=== PATIENT | female | born 1940 | race Caucasian/White ===

== ENCOUNTER 2019-01-26 23:14 | Inpatient (IN) | payer MEDICARE, BC ==
[~2019-01-26] VITALS: Ht 172.7 cm; Wt 59.4 kg
--- NOTE | 2019-01-26 23:40 | NUR ---
PATIENT WAS MSE BY DR DONALD.
[2019-01-26 23:55] LABS: BASOPHILS % (AUTO) 0.4 % (0.0-2.0); EOSINOPHILS % (AUTO) 0.9 % (0.0-7.0); HEMATOCRIT 38.4 % (31.2-41.9); HEMOGLOBIN 12.9 g/dL (10.9-14.3); LYMPHOCYTES # (AUTO) 1.3 K/uL (20.0-40.0); LYMPHOCYTES % (AUTO) 27.3 % (20.5-51.5); MEAN CORPUSCULAR HEMOGLOBIN 31.3 uug (24.7-32.8); MEAN CORPUSCULAR HGB CONC 34 g/dL (32.3-35.6); MEAN CORPUSCULAR VOLUME 92.9 fL (75.5-95.3); MONOCYTES # (AUTO) 0.6 K/uL (2.0-10.0); MONOCYTES % (AUTO) 12.5 % (0.0-11.0); NEUTROPHILS # (AUTO) 2.8 K/uL (1.8-8.9); NEUTROPHILS % (AUTO) 58.9 % (38.5-71.5); PLATELET COUNT (AUTO) 259 K/uL (179-408); RED BLOOD CELL COUNT(AUTO) 4.13 MIL/uL (3.63-4.92); WHITE BLOOD COUNT (AUTO) 4.7 K/uL (3.8-11.8)
[2019-01-27 00:01] LABS: CARBON DIOXIDE 28 mmol/L (21-32); CHLORIDE 102 mmol/L (98-107); CREATININE 0.7 mg/dL (0.6-1.3); GLUCOSE 108 mg/dL (74-106); POTASSIUM 4.5 mmol/L (3.5-5.1); UREA NITROGEN, BLOOD 26 mg/dL (7-18)
[2019-01-27 00:07] LABS: ALANINE AMINOTRANSFERASE 24 U/L (14-59); ALKALINE PHOSPHATASE 104 U/L (50-136); ASPARTATE AMINOTRANSFERASE 20 U/L (15-37); BILIRUBIN,DIRECT 0.1 mg/dL (0.0-0.2); BILIRUBIN,TOTAL 0.4 mg/dL (0.2-1.0); TOTAL PROTEIN, SERUM 7.7 g/dL (6.4-8.2)
[2019-01-27 00:15] LABS: THYROID STIMULATING HORMONE 5.565 mIU/mL (0.358-3.740)
[2019-01-27 00:23] LABS: ACETAMINOPHEN < 2.0 ug/mL (10-30)
[2019-01-27 00:27] LABS: ETHANOL < 3 MG/DL (0-0)
[2019-01-27 01:56] LABS: *BILIRUBIN,URIN NEGATIVE (NEGATIVE); *BLOOD, URINE NEGATIVE (NEGATIVE); *CLARITY,URINE CLEAR (CLEAR); *COLOR,URINE YELLOW (YELLOW); *KETONES,URINE TRACE (NEGATIVE); *UROBILINOGEN,URINE 0.2 E.U./dl (NORMAL); LEUKOCYTE ESTERASE ,URINE NEGATIVE (NEGATIVE); NITRITE, URINE NEGATIVE (NEGATIVE); UGLUCOSE NEGATIVE (NEGATIVE)
[2019-01-27 02:24] LABS: *AMPHETAMINE, URINE NEGATIVE (NEGATIVE); *BARBITURATE, URINE NEGATIVE (NEGATIVE); *CANNABINOID, URINE NEGATIVE (NEGATIVE); *COCCAINE, URINE NEGATIVE (NEGATIVE); *OPIATE, URINE NEGATIVE (NEGATIVE); *PHENCYCLIDINE SCREEN,URINE NEGATIVE (NEGATIVE)
[2019-01-27 02:27] LABS: BACTERIA,URINE NONE SEEN /HPF (NONE SEEN); SQUAMOUS EPITHELIAL CELL,UR NONE SEEN /HPF (NONE SEEN); WBC,URINE 0-3 /HPF (0-3)
--- NOTE | 2019-01-27 02:45 | NUR ---
PATIENT WAS MEDICALLY CLEARED BY DR DONALD.
--- NOTE | 2019-01-27 03:16 | NUR ---
Pt. admitted to MHU, under care of Belongs List completed
[2019-01-27] MEDS ORDERED: ACETAMINOPHEN 325 MG TABLET PO PRN (03:30)
[2019-01-27] MEDS ORDERED: LORAZEPAM 0.5 MG TABLET PO PRN (03:30)
[2019-01-27] MEDS ORDERED: TEMAZEPAM 7.5 MG CAPSULE PO PRN (03:30)
[2019-01-27] MEDS ORDERED: BLOOD SUGAR DIAGNOSTIC 1 EACH STRIP VI ONE (04:00)
[2019-01-27 04:30] VITALS: BP 151/79
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
[2019-01-27 07:30] VITALS: BP 109/54
--- NOTE | 2019-01-27 14:27 | NUR ---
GPS: received patient AOx3-4, asleep in her room, isolative , seen and examined by , orders made and carried out, patient went to nursing station, asking about he laboratory and checking if its normal, patient vebalize that she will go home today , patient paranoid and denies her delusion, will continue monitor
[2019-01-27 15:02] VITALS: BP 108/58
--- NOTE | 2019-01-27 16:39 | NUR ---
attempted to give her medication at 4pm, patient refuse at this time, claiming that she wants some food in first before having her medication , patient trying to evade her medication , verbalizing about her laboratory result which was explained to be not related with the medication, will try giving her medication after dinner , will continue monitor
[2019-01-27] MEDS: risperiDONE-M 0.5 MG TAB.RAPDIS PO SCH (17:01)
--- NOTE | 2019-01-27 17:03 | NUR ---
tried offering her risperdone at this time , patient took her meds , inspect her mouth patient swalloed her pills
--- NOTE | 2019-01-27 17:53 | NUR ---
patient remains calm, however paranoid with her surroundings, will continue monitor
[2019-01-27 19:57] VITALS: BP 117/73
[2019-01-27] MEDS ORDERED: OLANZAPINE 2.5 MG TABLET PO SCH (21:00)
[2019-01-28 07:18] LABS: BASOPHILS % (AUTO) 0.7 % (0.0-2.0); EOSINOPHILS # (AUTO) 0.1 K/uL (0.0-0.7); EOSINOPHILS % (AUTO) 2.2 % (0.0-7.0); HEMATOCRIT 36.5 % (31.2-41.9); HEMOGLOBIN 12.3 g/dL (10.9-14.3); LYMPHOCYTES # (AUTO) 1.1 K/uL (20.0-40.0); LYMPHOCYTES % (AUTO) 38.1 % (20.5-51.5); MEAN CORPUSCULAR HEMOGLOBIN 31.4 uug (24.7-32.8); MEAN CORPUSCULAR HGB CONC 34 g/dL (32.3-35.6); MEAN CORPUSCULAR VOLUME 93.4 fL (75.5-95.3); MONOCYTES # (AUTO) 0.4 K/uL (2.0-10.0); NEUTROPHILS # (AUTO) 1.3 K/uL (1.8-8.9); PLATELET COUNT (AUTO) 231 K/uL (179-408); RED BLOOD CELL COUNT(AUTO) 3.91 MIL/uL (3.63-4.92); WHITE BLOOD COUNT (AUTO) 2.9 K/uL (3.8-11.8)
[2019-01-28 07:30] VITALS: BP 121/61
[2019-01-28 07:32] LABS: BILIRUBIN,TOTAL 0.4 mg/dL (0.2-1.0); CREATININE 0.6 mg/dL (0.6-1.3); POTASSIUM 4.3 mmol/L (3.5-5.1); TOTAL PROTEIN, SERUM 6.4 g/dL (6.4-8.2)
[2019-01-28] MEDS: BENZTROPINE MESYLATE 0.5 MG TABLET PO SCH ×2 (08:27→17:12)
[2019-01-28] MEDS: risperiDONE-M 0.5 MG TAB.RAPDIS PO SCH ×2 (08:27→17:12)
--- NOTE | 2019-01-28 08:31 | NUR ---
PATIENT ARGUMENTATIVE WITH HER MEDICATION, TRIED POCKETING HER MEDICATION,
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
--- NOTE | 2019-01-28 09:33 | NUR ---
Social Work Note/Discharge Planning: clam bed worker contacted patients facility: [facility]; ([phone]) and left a voicemail to the health services coordinator. clam bed worker will follow-up to see if patient is welcomed back upon discharge.
--- NOTE | 2019-01-28 10:59 | NUR ---
GPS: PATIENT WENT BACK TO NURSING STATION, VERBALIZING THAT SHES HAVING HIGH BLOOD PRESSURE, RE CHECK WITH WITNESS BY LAUNDRY OPERATOR WASH ROOM, BLOOD PRESSURE WAS AT 115/60 AND PATIENT JUST WALK AWAY REALIZING THAT HER BP WAS WNL, WILL CONTINUE MONITOR
[2019-01-28 16:55] VITALS: BP 121/61
--- NOTE | 2019-01-28 18:06 | NUR ---
GPS: PATIENT BEEN COMPLIANT WITH MEDICATION, NEEDS PROMPTING WITH TAKING IT
[2019-01-28 20:46] VITALS: BP 115/69
[2019-01-28] MEDS: SIMVASTATIN 10 MG TABLET PO SCH (21:00)
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
--- NOTE | 2019-01-29 06:00 | NUR ---
slept well. continues to sleep. no distress noted.
[2019-01-29 07:30] VITALS: BP 102/70
[2019-01-29] MEDS: risperiDONE-M 0.5 MG TAB.RAPDIS PO SCH ×2 (08:51→20:52)
[2019-01-29] MEDS: BENZTROPINE MESYLATE 0.5 MG TABLET PO SCH ×2 (08:51→17:48)
--- NOTE | 2019-01-29 10:01 | NUR ---
Social Work Note/Discharge Planning Update: mud jack nozzle worker contacted patients facility: [facility]; spoke to [facility] media coordinator ([phone], ext: [phone]) (C: [phone]) who expressed patient is welcomed back but would want to evaluate patient upon discharge.
--- NOTE | 2019-01-29 15:53 | NUR ---
Social Work Note/Family Contact: warm in worker contacted patients sister Elliot Lawton, ([phone]) and left voicemail in regards to patients treatment plan and discharge plan. warm in worker was given this contact information from Sean, ([phone]) at [facility] where patient resides at.
[2019-01-29 16:00] VITALS: BP 112/61
[2019-01-29] MEDS: DIVALPROEX SPRINKLE 125 MG CAP.SPRINK PO SCH ×2 (16:20→20:52)
[2019-01-29 20:14] VITALS: BP 101/56
[2019-01-29] MEDS: SIMVASTATIN 10 MG TABLET PO SCH (20:58)
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
--- NOTE | 2019-01-30 06:00 | NUR ---
slept 5 hours total.
[2019-01-30 07:30] VITALS: BP 126/67
[2019-01-30] MEDS: BENZTROPINE MESYLATE 0.5 MG TABLET PO SCH ×2 (09:19→17:11)
[2019-01-30] MEDS: risperiDONE-M 0.5 MG TAB.RAPDIS PO SCH ×2 (09:19→20:28)
[2019-01-30] MEDS: DIVALPROEX SPRINKLE 125 MG CAP.SPRINK PO SCH ×2 (09:20→20:28)
--- NOTE | 2019-01-30 11:08 | NUR ---
Social Work Note/Discharge Planning Update: loft worker apprentice contacted [facility]; ([phone]) and spoke to Delicia who advised that an admin coordinator will contact back. loft worker apprentice received a phone call from admin coordinator Sasha ([phone]) who expressed that they want to transfer patient to there [facility] ([phone]). Sasha, admin coordinator will follow up with medical social consultant. Addendum: 01/30/19 at 1542 by JIMMIE JOYCE Disregard note.
--- NOTE | 2019-01-30 11:34 | NUR ---
Social Work Note/Individual Therapy Note: dairy cattle farm worker met with patient and provided brief supportive counseling. Patient was able to have a conversation with the brief writer.
--- NOTE | 2019-01-30 12:01 | NUR ---
Social Work Note/Family Contact: feeder worker power unit operator contacted patients sister Justin Lawton, ([phone]) and left a voicemail in regard to patients status. feeder worker power unit operator will follow up regularly.
[2019-01-30 16:00] VITALS: BP 108/49
[2019-01-30] MEDS: SIMVASTATIN 10 MG TABLET PO SCH (20:33)
--- NOTE | 2019-01-30 22:00 | NUR ---
received to care, sitting in her room. observed to be in the hallway several times, interacting with peers and staff. remains pleasant upon approach, but suspicious, at times. was compliant with her bedtime medications, except for zocor. continues to be focused on zander ozzie, but would not elaborate further; reality orientation was provided. as of 2199, she appears to be asleep. no distress noted. will continue to monitor closely.
[2019-01-30 22:11] VITALS: BP 107/63
--- NOTE | 2019-01-31 06:00 | NUR ---
slept 7.5 hours. continues to sleep. no distress noted.
[2019-01-31 07:30] VITALS: BP 117/64
[2019-01-31] MEDS: DIVALPROEX SPRINKLE 125 MG CAP.SPRINK PO SCH ×2 (08:55→20:39)
[2019-01-31] MEDS: risperiDONE-M 0.5 MG TAB.RAPDIS PO SCH ×2 (08:55→20:40)
[2019-01-31] MEDS: BENZTROPINE MESYLATE 0.5 MG TABLET PO SCH ×2 (08:55→17:09)
[2019-01-31 16:00] VITALS: BP 97/48
[2019-01-31] MEDS: SIMVASTATIN 10 MG TABLET PO SCH (20:39)
[2019-01-31 21:06] VITALS: BP 111/65
[2019-02-01 07:30] VITALS: BP 118/61
[2019-02-01] MEDS: risperiDONE-M 0.5 MG TAB.RAPDIS PO SCH ×2 (09:03→20:48)
[2019-02-01] MEDS: BENZTROPINE MESYLATE 0.5 MG TABLET PO SCH ×2 (09:03→16:19)
[2019-02-01] MEDS: DIVALPROEX SPRINKLE 125 MG CAP.SPRINK PO SCH ×2 (09:03→20:43)
--- NOTE | 2019-02-01 10:00 | NUR ---
DR SHARMA HERE TO SEE AND VISIT PATIENT WITH NO NEW ORDERS AT THIS TIME
[2019-02-01 16:10] VITALS: BP 97/46
--- NOTE | 2019-02-01 18:10 | NUR ---
HAS BEEN COMPLIANT WITH HER MEDICATIONS EVEN THOUGH SHE SAID THAT THE MEDICATIONS SHE WAS GETTING WAS NOT THE RIGHT ONES.
[2019-02-01] MEDS: SIMVASTATIN 10 MG TABLET PO SCH (20:48)
--- NOTE | 2019-02-01 20:48 | NUR ---
gps: refused zocor 10 mg po hs dose.
--- NOTE | 2019-02-02 06:02 | NUR ---
GPS: Remain calm and cooperative. slept 5:45 hrs through the night. continue plan of care.
[2019-02-02 07:30] VITALS: BP 126/69
[2019-02-02] MEDS: BENZTROPINE MESYLATE 0.5 MG TABLET PO SCH ×2 (08:50→16:36)
[2019-02-02] MEDS: risperiDONE-M 0.5 MG TAB.RAPDIS PO SCH (08:50)
[2019-02-02] MEDS: DIVALPROEX SPRINKLE 125 MG CAP.SPRINK PO SCH ×3 (08:50→20:56)
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
[2019-02-02 15:53] VITALS: BP 106/61
[2019-02-02 20:00] VITALS: BP 111/68
[2019-02-02] MEDS: MAGNESIUM HYDROXIDE 30 ML LIQUID UDC PO PRN (20:56)
[2019-02-02] MEDS: SIMVASTATIN 10 MG TABLET PO SCH (20:57)
[2019-02-02] MEDS ORDERED: risperiDONE-M 0.5 MG TAB.RAPDIS PO SCH (21:00)
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
--- NOTE | 2019-02-03 06:00 | NUR ---
slept 8.0 hours. continues to sleep. no distress noted.
[2019-02-03 07:30] VITALS: BP 130/64
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
[2019-02-03] MEDS: BENZTROPINE MESYLATE 0.5 MG TABLET PO SCH ×2 (09:18→16:16)
[2019-02-03] MEDS: DIVALPROEX SPRINKLE 125 MG CAP.SPRINK PO SCH ×3 (09:18→20:14)
[2019-02-03] MEDS: risperiDONE-M 0.5 MG TAB.RAPDIS PO SCH ×2 (09:19→20:07)
--- NOTE | 2019-02-03 10:29 | NUR ---
Social Work Note/Discharge Plan Update: factory worker faxed patients progress notes and psychiatric H & P to Lexus from [facility] (F:[phone]) for coordination of care. Admin coordinator expressed that patient is welcomed upon discharge.
[2019-02-03 15:27] VITALS: BP 117/59
[2019-02-03 20:00] VITALS: BP 111/69
[2019-02-03] MEDS: MAGNESIUM HYDROXIDE 30 ML LIQUID UDC PO PRN (20:06)
[2019-02-03] MEDS: SIMVASTATIN 10 MG TABLET PO SCH (20:14)
--- NOTE | 2019-02-03 21:09 | NUR ---
Patient refused to take Depakote this PM. clarification needed if MD wants to continue Depakote. Call placed to and left message. Awaiting call back. No acute distress noted with patient.
--- NOTE | 2019-02-04 06:10 | NUR ---
Patient slept 6.5 hours. Up during the night worrying about her laundry. Back to bed and asleep at this time.
[2019-02-04 07:30] VITALS: BP 105/52
[2019-02-04] MEDS: risperiDONE-M 0.5 MG TAB.RAPDIS PO SCH ×2 (09:04→20:06)
[2019-02-04] MEDS: BENZTROPINE MESYLATE 0.5 MG TABLET PO SCH (09:05)
[2019-02-04] MEDS: DIVALPROEX SPRINKLE 125 MG CAP.SPRINK PO SCH (09:05)
[2019-02-04] MEDS ORDERED: BENZTROPINE MESYLATE 0.5 MG TABLET PO SCH (10:45)
[2019-02-04] MEDS: BENZTROPINE MESYLATE 1 MG TABLET PO SCH ×2 (12:14→18:29)
--- NOTE | 2019-02-04 13:59 | NUR ---
Social Work Note/Coordination of Care: Sean wellness program manager ([phone]) from [facility] came to assess patient. Sean stated that they need to assess patients level of care upon discharge before they take patient back.
[2019-02-04 16:00] VITALS: BP 115/57
[2019-02-04] MEDS: MAGNESIUM HYDROXIDE 30 ML LIQUID UDC PO PRN (20:06)
[2019-02-04] MEDS: SIMVASTATIN 10 MG TABLET PO SCH (20:06)
[2019-02-04 23:22] VITALS: BP 139/66
[2019-02-05 07:30] VITALS: BP 118/64
[2019-02-05] MEDS: BENZTROPINE MESYLATE 1 MG TABLET PO SCH ×2 (08:32→16:29)
[2019-02-05] MEDS: risperiDONE-M 0.5 MG TAB.RAPDIS PO SCH ×2 (08:33→21:01)
[2019-02-05 16:00] VITALS: BP 115/64
--- NOTE | 2019-02-05 16:58 | NUR ---
Gps/Medical File Clerk- Patient is forgetful, insisting she already took her routine afternoon meds. informed patient she has not taken any pm meds. yet .Attends and participates in her group,
--- NOTE | 2019-02-05 20:00 | NUR ---
Patient received into care, awake and alert, sitting on side of bed. Patient has no complaints of pain or discomfort at this time, but is asking for something to help with heartburn. All safety and fall precaution measures are in place. Will continue to monitor.
[2019-02-05] MEDS: SIMVASTATIN 10 MG TABLET PO SCH (21:00)
[2019-02-05] MEDS: MAG HYDROX/AL HYDROX/SIMETH 30 ML LIQUID UDC PO PRN (21:00)
--- NOTE | 2019-02-05 21:00 | NUR ---
Patient refused prescribed zocor, stating that her cholesterol is fine and that on the last visit to her physician she agreed to change her diet/eating habits and physician will recheck cholesterol in 4 months.
--- NOTE | 2019-02-06 06:30 | NUR ---
Patient slept comfortably for 7 hours after move to GPS overflow on third floor. Patient had no complaints of pain or discomfort this shift. All safety and fall precaution measures remain in place.
[2019-02-06] MEDS: BENZTROPINE MESYLATE 1 MG TABLET PO SCH ×2 (08:55→16:51)
[2019-02-06] MEDS: risperiDONE-M 0.5 MG TAB.RAPDIS PO SCH ×2 (08:56→20:28)
[2019-02-06 11:44] VITALS: BP 105/63
--- NOTE | 2019-02-06 12:23 | NUR ---
Social Work Note/Discharge Plan Update: coating line worker contacted Sean from [facility] ([phone]) and she stated that she will assess patient Friday 02/09 and upon discharge patient is welcomed back.
[2019-02-06 16:07] VITALS: BP 121/78
--- NOTE | 2019-02-06 17:41 | NUR ---
Patient resting in bed, no distress noted or complaints of pain. Sitter remains at bedside for safety. Patient calm, compliant with nursing care.
[2019-02-06 20:00] VITALS: BP 121/57
[2019-02-06] MEDS: SIMVASTATIN 10 MG TABLET PO SCH (20:28)
[2019-02-06] MEDS: MAGNESIUM HYDROXIDE 30 ML LIQUID UDC PO PRN (20:29)
--- NOTE | 2019-02-07 06:52 | NUR ---
Patient slept 8 hours throughout the night with 1:1 sitter at bedside. Patient had no complaints of pain or discomfort verbalized. Patient was noncompliant with her prescribed 2100 respiradone. .
[2019-02-07 08:47] VITALS: BP 122/72
[2019-02-07] MEDS: BENZTROPINE MESYLATE 1 MG TABLET PO SCH ×2 (09:36→17:58)
[2019-02-07] MEDS: risperiDONE-M 0.5 MG TAB.RAPDIS PO SCH ×2 (09:37→20:13)
[2019-02-07 16:33] VITALS: BP 114/65
[2019-02-07] MEDS: MAG HYDROX/AL HYDROX/SIMETH 30 ML LIQUID UDC PO PRN (18:07)
[2019-02-07 20:00] VITALS: BP 115/57
--- NOTE | 2019-02-07 20:00 | NUR ---
Patient received into care, sitting on side of bed, with 1:1 sitter at bedside. Patient is alert/oriented x3 and has no complaints of pain or discomfort at this time. All safety and fall precaution measures are in place. Personal items are within reach at all times. Will continue to monitor and assess.
[2019-02-07] MEDS: SIMVASTATIN 10 MG TABLET PO SCH (20:23)
--- NOTE | 2019-02-07 20:27 | NUR ---
Patient refused zocor, stating that she has already brought down her cholesterol by 40 points and therefore does not need the medication. Patient also stated that she wants nurse to put in her records to not offer medication to her. Nurse explained risks/benefits three times, patient still refused.
--- NOTE | 2019-02-08 06:00 | NUR ---
Patient slept 8 hours throughout night with 1:1 sitter at side. Patient was compliant with prescribed psychotropic medications but refused prescribed hyperlipidemia medications. All safety, fall precaution, and aspiration precaution measures remain in place. Call light and personal items remain within reach at all times.
[2019-02-08 08:00] VITALS: BP 110/73
[2019-02-08] MEDS: BENZTROPINE MESYLATE 1 MG TABLET PO SCH ×2 (10:20→17:00)
[2019-02-08] MEDS: risperiDONE-M 0.5 MG TAB.RAPDIS PO SCH ×2 (10:21→20:00)
[2019-02-08] MEDS: MAG HYDROX/AL HYDROX/SIMETH 30 ML LIQUID UDC PO PRN (13:57)
[2019-02-08 16:04] VITALS: BP 106/55
[2019-02-08] MEDS: MAGNESIUM HYDROXIDE 30 ML LIQUID UDC PO PRN (16:20)
[2019-02-08] MEDS: SIMVASTATIN 10 MG TABLET PO SCH ×2 (20:00→20:12)
[2019-02-08 20:53] VITALS: BP 106/67
--- NOTE | 2019-02-09 06:54 | NUR ---
PATIENT SLEPT 6 HOURS LAST NIGHT.PATIENT CONTINUES WITH DELUSIONS BUT WAS COMPLIANT WITH NIGHT TIME MEDICATIONS. NO SUICIDAL IDEATION VERBALIZED BY PATIENT. 1:1 SITTER AT BEDSIDE.NO ACUTE CHANGES ENDORSED TO AM NURSE.
[2019-02-09 09:04] VITALS: BP 106/50
[2019-02-09] MEDS: BENZTROPINE MESYLATE 1 MG TABLET PO SCH ×2 (09:52→17:22)
[2019-02-09] MEDS: risperiDONE-M 0.5 MG TAB.RAPDIS PO SCH (09:52)
[2019-02-09 15:24] VITALS: BP 99/59
--- NOTE | 2019-02-09 18:18 | NUR ---
Pt, compliant with plan of care. pt. denies pain/ discomfort. Pt. denies SOB/ difficulty breathing. Pt. took all medications, cooperative, and calm throughout day. Pt. walked around unit and expressed feelings with sitter. Safety measures in place. call light within reach. Will continue to monitor pt.
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
[2019-02-09] MEDS: SIMVASTATIN 10 MG TABLET PO SCH (20:43)
[2019-02-09] MEDS ORDERED: risperiDONE-M 0.5 MG TAB.RAPDIS PO SCH (21:00)
--- NOTE | 2019-02-10 07:30 | NUR ---
Patient with one to one sitter with no signs of distress; patient resting in bed.
--- NOTE | 2019-02-10 08:36 | NUR ---
Social Work Note/Discharge: Patient will be discharged back to [facility] [address] [facility], [place] [address]; ([phone] via taxi. Patient to be picked up at 11:00pm via taxi. Crimping Press Operator spoke with [facility] extrusion die coordinator ([phone], ext: [phone]) (C: [phone]) at the facility who states they are ready to accept the patient back today. Patient is aware and agreeable with discharge plans. Patients sister Elliot Lawton, ([phone]) is aware and agreeable with discharge plans. Patient is alert and oriented x3, is not able to plan for self-care, and denies any suicidal or homicidal ideations. Patient will follow-up at the facility [address] [place] [address]; ([phone]) with Dr. Barcenas with (Primary Care Physician) on February 16, 2019 at 1PM. Patient will follow up with psychiatrist Dr. Sanon at the facility. Patient was given outpatient mental health referrals to [facility] [[address] [place] [address]; [phone]]; [facility] ([phone]); National Suicide Prevention Lifeline ( ). Patient presents with euthymic mood and congruent affect.
--- NOTE | 2019-02-10 08:37 | NUR ---
Social Work Note/Firearms Report: Marine Drafter completed and submitted a [employer] firearms report for 5250 grave disability certification. A copy of report has been placed in patient chart.
--- NOTE | 2019-02-10 08:38 | NUR ---
Social Work Note/Family Contact: eligibility worker contacted patients sister Justin Lawton, ([phone]) and left a voicemail in regard to patients discharge.
[2019-02-10] MEDS: BENZTROPINE MESYLATE 1 MG TABLET PO SCH (09:34)
[2019-02-10] MEDS: risperiDONE-M 0.5 MG TAB.RAPDIS PO SCH (09:34)
--- NOTE | 2019-02-10 10:20 | NUR ---
called [facility] pharmacy for discharge prescription per Dr. Sanon ordered. spoke with Paresh
--- NOTE | 2019-02-10 12:35 | NUR ---
Patient discharged home with oil trough taxi provided by [facility]; Patient discharged back to [facility] in stable condition with no signs of distress; and stable vital signs patient educated on discharge instructions. Patient refused pictures of toe taken upon initial assessment; Patient verbalized understanding of discharge instructions.
== END 2019-02-10 12:35 | DRG 885 ==
LOC: ER 23:16 → GPS 01-27 03:12 → MEDSURG3 02-05 22:37 → GPSOV3 02-05 23:23
PROVIDERS: ADMIT Psychiatry & Neurology Psychosomatic Medicine; ATTEND Internal Medicine
DX: F25.0 Schizoaffective disorder, bipolar type (principal); D68.59 Other primary thrombophilia; G31.84 Mild cognitive impairment of uncertain or unknown etiology; Z74.09 Other reduced mobility; M20.42 Other hammer toe(s) (acquired), left foot; M20.41 Other hammer toe(s) (acquired), right foot; M20.12 Hallux valgus (acquired), left foot; M20.11 Hallux valgus (acquired), right foot; L84 Corns and callosities; E78.5 Hyperlipidemia, unspecified; E03.9 Hypothyroidism, unspecified; L98.8 Other specified disorders of the skin and subcutaneous tissue
CPT/HCPCS: 36415; 80164; 80307; 84443; 85025; A4663; G0480; G0480-TC

== ENCOUNTER 2020-10-05 17:27 | Inpatient (IN) | payer BC, MEDICARE, OTHER ==
[~2020-10-05] VITALS: Ht 165.1 cm; Wt 59.0 kg
--- NOTE | 2020-10-05 17:27 | NUR ---
Patient is here in our ER department for medical clearance. The patient is for geriatric mental health unit admission@this time and she is on 5150 psych HOLD since 12 noon of 10/04/20 for gravely disabled.
--- NOTE | 2020-10-05 17:33 | NUR ---
Patient refused EKG until seen by our ER doctor. Comfort & safety measures maintained.
--- NOTE | 2020-10-05 17:49 | NUR ---
Patient is eating dinner with good appetite, calm & cooperative@this time
--- NOTE | 2020-10-05 18:28 | NUR ---
Patient is waiting for our ER doctor to examine and clear this patient for psych admission.
--- NOTE | 2020-10-05 18:56 | NUR ---
Hands off report to LALO Merino, still for medical clearance
--- NOTE | 2020-10-05 19:52 | NUR ---
pt transfered to mhu in stable condition.
[2020-10-05 20:30] VITALS: BP 129/68
[2020-10-05] MEDS ORDERED: MAG HYDROX/AL HYDROX/SIMETH 30 ML LIQUID UDC PO PRN (22:15)
[2020-10-05] MEDS ORDERED: ACETAMINOPHEN 325 MG TABLET PO PRN (22:15)
[2020-10-05] MEDS ORDERED: LORAZEPAM 1 MG TABLET PO PRN (22:15)
[2020-10-05] MEDS ORDERED: TEMAZEPAM 7.5 MG CAPSULE PO PRN (22:15)
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
[2020-10-06 07:16] LABS: BILIRUBIN,TOTAL 0.5 mg/dL (0.2-1.0); CREATININE 0.7 mg/dL (0.6-1.3); POTASSIUM 4.2 mmol/L (3.5-5.1); TOTAL PROTEIN, SERUM 6.4 g/dL (6.4-8.2)
[2020-10-06 07:30] VITALS: BP 110/56
--- NOTE | 2020-10-06 08:04 | NUR ---
FIREARMS REPORT: Cell Pourer completed and submitted a [employer] firearms report for 5150 grave disability certification. A copy of report has been placed in patient chart.
--- NOTE | 2020-10-06 09:28 | NUR ---
SW Family Contact: This SW contacted patient's sister Elliot Lawton ([phone]) and left a detailed voicemail of patients treatment/discharge plan.
--- NOTE | 2020-10-06 09:28 | NUR ---
JIMMIE Initial Discharge: Patient lives alone at [id number] [place] [address]; ([phone]). Patient will return home upon discharge. This SW contacted patient's sister Elliot Lawton ([phone]) and left a detailed voicemail of patients treatment/discharge plan. JIMMIE will work with the pt and doctor to coordinate proper discharge.
--- NOTE | 2020-10-06 09:29 | NUR ---
Treatment Plan: Pt refused to sign due to paranoia.
--- NOTE | 2020-10-06 12:25 | NUR ---
UR NOTE: Auth# [id number] obtained from [employer] with [employer] at [phone] Approved for 3 days continued stay is based on medical necessity & clinical review. Geothermal Operations Manager. assigned is; Art A. and his direct line is [phone] FAX# [phone]
--- NOTE | 2020-10-06 14:40 | NUR ---
SW Note: Patient on the phone constantly calling different places and making accusatory statements that the hospital is neglecting her care and that nurses are "doing certain things to her". This SW notified patient's assigned nurse RICO Reddy.
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
--- NOTE | 2020-10-06 14:50 | NUR ---
SW Note: This SW notified Dr. Fuller of pt's behavior. This SW stated pt is accusatory of staff.
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
[2020-10-06 16:05] VITALS: BP 125/63
--- NOTE | 2020-10-06 16:50 | NUR ---
Gps/Pantry Steward/Stewardess- Dr Fuller was called was informed of the patient , assisnged to Dr Engel, he claimed he spoked to Dr Engel already this pm.
--- NOTE | 2020-10-06 17:00 | NUR ---
Gps/Clothing Pattern Preparer- Dr Engel was called and was informed he is the admitting Doctor for the patient, stated he already talked to Dr Fuller , and he is comming to see all the patients today. Dr Engel will be coving tomorrow.
--- NOTE | 2020-10-06 18:39 | NUR ---
Gps/Lav- Ate 100% of dinner was asking for more jennifer. puddings. Patient came back claimed she is having a heart attack, was told to go back to her room and stay in bed. B/P check 151/70 on her right arm, HR 76 reg , radial pulse, Temp. 97.1, 99% with 02 sat. patient claimed she had many heart attacks, including last night that they use defibrillator on her , then she was ok. Patient got up walks around. with no discomfort noted, asking when Dr Fuller see her, needed to leave per pt. she has appointment to take care of.
[2020-10-06 20:00] VITALS: BP 141/69
[2020-10-06] MEDS: risperiDONE 1 MG TABLET PO SCH (20:40)
[2020-10-07 07:30] VITALS: BP 113/61
[2020-10-07] MEDS: risperiDONE 1 MG TABLET PO SCH ×2 (08:39→20:06)
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
--- NOTE | 2020-10-07 09:14 | NUR ---
Gps/Packing Machine Tender- Per Patient she does not take any medications at home(No home meds.)
--- NOTE | 2020-10-07 09:29 | NUR ---
UR NOTE: Initial Auth# [id number] New Auth#[id number] JIMMIE spoke with Plasterer StuccoMgr. Myron Llamas ([phone] FAX# [phone]) and faxed patient's clinicals. Art stated he will fax SW confirmation of authorization and will require clinicals on Saturday. Addendum: 10/07/20 at 0940 by ISAÍAS LAL Art faxed SW auth confirmation and the copy has been placed in the patient's chart.
[2020-10-07] MEDS: MAGNESIUM HYDROXIDE 30 ML LIQUID UDC PO PRN (12:59)
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
[2020-10-07 16:00] VITALS: BP 115/67
[2020-10-07 20:02] VITALS: BP 95/66
[2020-10-08 07:30] VITALS: BP 107/63
[2020-10-08] MEDS: risperiDONE 1 MG TABLET PO SCH ×2 (08:02→21:11)
[2020-10-08 16:22] VITALS: BP 118/56
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
[2020-10-08 20:15] VITALS: BP 98/50
--- NOTE | 2020-10-08 22:00 | NUR ---
patient noted suspicious. she stated, "There is a camera in my room". she required multiple redirection and constant reassurance. she is able to comply with medication regiment at this time. will continue to monitor
[2020-10-09] MEDS: risperiDONE 1 MG TABLET PO SCH ×2 (08:35→21:07)
[2020-10-09] MEDS: MAGNESIUM HYDROXIDE 30 ML LIQUID UDC PO PRN (09:07)
[2020-10-09 09:13] VITALS: BP 109/69
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
[2020-10-09 16:11] VITALS: BP 119/48
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
[2020-10-09 20:17] VITALS: BP 116/72
[2020-10-10 08:00] VITALS: BP 112/62
--- NOTE | 2020-10-10 08:12 | NUR ---
UR NOTE: Initial Auth# [id number] New Auth#[id number] JIMMIE spoke with Youth Officer. Art A. ([phone] FAX# [phone]) and faxed patient's clinicals.
[2020-10-10] MEDS: risperiDONE 1 MG TABLET PO SCH (08:37)
--- NOTE | 2020-10-10 10:12 | NUR ---
Court Hearing: Patient's court hearing for 2480 was today and it was upheld for GD.
[2020-10-10] MEDS: MAGNESIUM HYDROXIDE 30 ML LIQUID UDC PO PRN (11:20)
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
--- NOTE | 2020-10-10 14:39 | NUR ---
UR NOTE: Initial Auth# [id number] New Auth#[id number] JIMMIE spoke with Matte Cutter. Art A. ([phone] FAX# [phone]) who stated that pt is authorized until stable but will require daily clinicals. This SW requested confirmation and per Art caser up he stated that they will not be sending confirmation and that he will not start to do so. He stated that he is giving verbal consent that pt is authorized.
[2020-10-10] MEDS: ENSURE ENLIVE (VAN) 240 ML LIQUID PO SCH (16:52)
[2020-10-10 19:56] VITALS: BP 111/60
[2020-10-10] MEDS: risperiDONE 2 MG TABLET PO SCH (20:21)
[2020-10-10] MEDS ORDERED: risperiDONE 1 MG TABLET PO SCH (21:00)
[2020-10-11 07:30] VITALS: BP 132/75
[2020-10-11] MEDS: risperiDONE 2 MG TABLET PO SCH ×2 (08:37→20:07)
[2020-10-11] MEDS: ENSURE ENLIVE (VAN) 240 ML LIQUID PO SCH ×2 (08:38→16:51)
--- NOTE | 2020-10-11 14:20 | NUR ---
UR NOTE: Initial Auth# [id number] New Auth#[id number] JIMMIE faxed Geophysical E Logger. Art A. ([phone] FAX# [phone]) updated clinicals and left a voicemail for him to contact this SW back and confirm if received. Waiting for a call back.
[2020-10-11 15:01] VITALS: BP 103/53
[2020-10-11 20:30] VITALS: BP 118/73
--- NOTE | 2020-10-12 06:51 | NUR ---
GPS: Remain paranoid and needy. cooperative with meds and care. slept 7.30 hrs through the night. resting in bed comfortably. continue plan of care.
[2020-10-12 07:30] VITALS: BP 126/77
[2020-10-12] MEDS: risperiDONE 2 MG TABLET PO SCH ×2 (08:02→20:06)
[2020-10-12] MEDS: FLUVOXAMINE MALEATE 25 MG TABLET PO SCH ×3 (08:09→17:00)
[2020-10-12] MEDS: ENSURE ENLIVE (VAN) 240 ML LIQUID PO SCH ×2 (08:44→17:46)
--- NOTE | 2020-10-12 08:57 | NUR ---
UR NOTE: Initial Auth# [id number] New Auth#[id number] JIMMIE faxed Lining Strap Closer. Art A. ([phone] FAX# [phone]) updated clinicals and left a voicemail for him to contact this SW back and confirm if received. Waiting for a call back.
--- NOTE | 2020-10-12 09:51 | NUR ---
JIMMIE Coordination of Care: Patient was provided (primary doctor) Dr. Carrasco information located at [address] [facility], [place] [address] ([phone]). Patient will be referred to [facility] for intake evaluation located at [address] [facility] [address], [place] [address]; ([phone]) via telehealth on October 18 at 8:30AM scheduled by Paulette.
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
[2020-10-12 13:00] VITALS: BP 114/66
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
[2020-10-12 19:59] VITALS: BP 112/61
[2020-10-13 07:30] VITALS: BP 121/61
[2020-10-13] MEDS: ENSURE ENLIVE (VAN) 240 ML LIQUID PO SCH ×2 (09:00→17:53)
[2020-10-13] MEDS: FLUVOXAMINE MALEATE 25 MG TABLET PO SCH ×3 (09:00→17:00)
[2020-10-13] MEDS: risperiDONE 2 MG TABLET PO SCH ×2 (09:30→20:12)
--- NOTE | 2020-10-13 12:45 | NUR ---
GPS: Pt at the room alert and verbally responsive. pt refused luvox at 900 and 1300, with paranoid delusion, per pt she was mis-diagnosed and her diagnosis for admission here was heart attack.
--- NOTE | 2020-10-13 15:56 | NUR ---
UR NOTE: Initial Auth# [id number] New Auth#[id number] JIMMIE faxed Newspaper Vendor. Art A. ([phone] FAX# [phone]) updated clinicals and left a voicemail for him to contact this SW back and confirm if received. Waiting for a call back.
[2020-10-13 16:04] VITALS: BP 97/52
--- NOTE | 2020-10-13 18:07 | NUR ---
GPS: pt alert, likes to ambulate in hallway with walker. pt refused luvox this 1700. per pt, she's only giving the nurse a favor for taking the risperdal. but luvox, she does not like to take it.
[2020-10-13 20:00] VITALS: BP 101/57
[2020-10-13] MEDS: MAGNESIUM HYDROXIDE 30 ML LIQUID UDC PO PRN (20:25)
--- NOTE | 2020-10-13 21:02 | NUR ---
AAOx3-4 all needs attended. VSS. Tolerated po meds well. Ambulatory ad jesus. No behavioral issues noted. No signs of agitation or restlessness. Calm and cooperative. Compliant with care. Asked for milk of magnesia. No BM noted this shift. Will monitor patient. Continent of bowel and bladder.
--- NOTE | 2020-10-14 06:27 | NUR ---
End of shift report: Slept well throughout the night. Had 8hrs of sleep. No acute distress noted. Denies any pain nor any discomfort.
[2020-10-14 07:30] VITALS: BP 110/54
--- NOTE | 2020-10-14 08:35 | NUR ---
UR NOTE: Initial Auth# [id number] New Auth#[id number] JIMMIE faxed Kitchen Assistant. Art A. ([phone] FAX# [phone]) updated clinicals and left a voicemail for him to contact this SW back and confirm if received. Waiting for a call back.
[2020-10-14] MEDS: FLUVOXAMINE MALEATE 25 MG TABLET PO SCH ×3 (09:00→17:00)
--- NOTE | 2020-10-14 09:06 | NUR ---
JIMMIE Family Contact: This SW left patients sister Jered ([phone]) a voicemail and she was unavailable. SW stated pt will be returning back home on 10/15 in the voicemail.
--- NOTE | 2020-10-14 09:07 | NUR ---
EARLY DISCHARGE ENTRY 10/15/2020Saturday: Patient will be discharged back home [address] [place]; ([phone]). Patient will be provided taxi transportation at 1PM. This SW left patients sister Jered ([phone]) a voicemail and she was unavailable. Upon discharge, patient appeared to be alert and oriented x3 and happy to be going back home. Patient denies suicidal or homicidal ideation. Patient denies visual/auditory hallucinations. Patient was provided (primary doctor) Dr. Carrasco information located at [address] [facility] [facility], [place] [address] ([phone]). Patient will be referred to [facility] for intake evaluation located at [address] [facility] [address], [place] [address]; ([phone]) via telehealth on October 18 at 8:30AM. Patient presented with euthymic mood and congruent affect.
[2020-10-14] MEDS: risperiDONE 2 MG TABLET PO SCH ×2 (09:19→20:23)
[2020-10-14] MEDS: ENSURE ENLIVE (VAN) 240 ML LIQUID PO SCH ×2 (09:23→17:40)
[2020-10-14] MEDS: MAGNESIUM HYDROXIDE 30 ML LIQUID UDC PO PRN (13:41)
[2020-10-14 16:35] VITALS: BP 120/63
--- NOTE | 2020-10-14 18:10 | NUR ---
GPS: Pt alert and verbally responsive. pt refused taking luvox because she stated that the psychiatrist does not have a license to give that medication. no aggressive behavior at this time. cooperative with care. other medications taken and tolerated well.
[2020-10-14 20:18] VITALS: BP 111/64
--- NOTE | 2020-10-15 06:13 | NUR ---
Patient slept about 6 hrs.Denies paranoia delusions at this time.Compliant with medication.Ambulates to bathroom without difficulty.VSS
[2020-10-15 08:17] VITALS: BP 115/59
[2020-10-15] MEDS: risperiDONE 2 MG TABLET PO SCH (08:36)
[2020-10-15] MEDS: ENSURE ENLIVE (VAN) 240 ML LIQUID PO SCH (08:37)
[2020-10-15] MEDS: FLUVOXAMINE MALEATE 25 MG TABLET PO SCH ×2 (08:37→12:13)
--- NOTE | 2020-10-15 10:35 | NUR ---
GPS: Nursing Notes: Refusing Luvox: Patient refusing her Luvox medication stated "I do not need it..", Dr. Fuller informed of patient refusing her Luvox medication, per Dr. Fuller to continue with her discharge, continue to monitor for safety, continue with her discharge plan.
--- NOTE | 2020-10-15 13:45 | NUR ---
GPS: Nursing Notes: Discharge Notes: Patient is awake and responding to her name, cooperative with nursing care, A/Ox3, compliant with her Risperdal, following staff directions, denies SI/HI, denies AH/VH, denies SOB, [place] [address] [place] [address] . Patient's sister - Jered was inform of discharge by social sciences department chair. instructions and prescription given to patient, took all her belongings with her. Patient was provided (primary doctor) Dr. Carrasco information located at [address] [place] [address] ([phone]) for aftercare to follow up with tube trailer filler as soon as possible. Patient referred to [facility] for intake evaluation located at [address] [facility] [address], [place] [address]; ([phone]) via telehealth on October 18 at 8:30AM.
== END 2020-10-15 13:45 | disposition home or self-care (01) | DRG 885 ==
LOC: ER 17:28 → GPS 19:48
PROVIDERS: ADMIT Psychiatry & Neurology Psychiatry; ATTEND Family Medicine
DX: F22 Delusional disorders (principal); F23 Brief psychotic disorder; Z86.73 Personal history of transient ischemic attack (TIA), and cerebral infarction without residual deficits; Z88.0 Allergy status to penicillin; Z73.6 Limitation of activities due to disability; F25.9 Schizoaffective disorder, unspecified; F60.9 Personality disorder, unspecified; Z20.822 Contact with and (suspected) exposure to COVID-19; Z96.643 Presence of artificial hip joint, bilateral
CPT/HCPCS: 36415; 93005; 97161; A4663